=== PATIENT | female | born 1970 | race Caucasian/White ===

== ENCOUNTER 2023-04-17 21:14 | Emergency (ER) | payer SELFPAY ==
[2023-04-17 21:40] VITALS: RESP 16; BMI 28.3
[2023-04-17 22:09] VITALS: BP 104/59; PULSE 88; TEMP 99
== END 2023-04-18 01:45 | disposition home or self-care (01) ==
LOC: FER 21:14
DX: F10.129 Alcohol abuse with intoxication, unspecified (principal); Y90.9 Presence of alcohol in blood, level not specified
CPT/HCPCS: 99281-25